=== PATIENT | male | born 1960 | race Two or more races ===

== ENCOUNTER 2017-03-31 10:30 | Inpatient (IN) | payer OTHER ==
[~2017-03-31] VITALS: Ht 167.6 cm; Wt 81.6 kg
[2017-03-31] MEDS ORDERED: METFORMIN HCL500 MG (10:51)
[2017-03-31] MEDS ORDERED: METFORMIN HCL850 MG PO (20:21)
[2017-03-31] MEDS ORDERED: GLUCOTROL10 MG PO (20:22)
[2017-04-14] MEDS ORDERED: NEURONTIN300 MG PO (11:41)
[2017-04-14] MEDS ORDERED: ZOLPIDEM TARTRA10 MG PO (11:41)
[2017-04-14] MEDS ORDERED: GLUCOTROL10 MG PO (11:41)
[2017-04-14] MEDS ORDERED: INTESTINEX680 M1 PO (11:41)
[2017-04-14] MEDS ORDERED: AVAPRO150 MG PO (11:41)
[2017-04-14] MEDS ORDERED: CARdura 2MG TABLET PO (11:41)
[2017-04-14] MEDS ORDERED: AMOX-CLAV 875-1 EACH PO (11:41)
[2017-04-14] MEDS ORDERED: HYDROCHLOROTH12.5 M1 PO (11:41)
[2017-04-14] MEDS ORDERED: METFORMIN HCL850 MG PO (11:41)
== END 2017-04-14 14:48 | disposition home or self-care (01) | DRG 617 ==
LOC: ER 10:30 → SEC-K 20:42 → MEDI 20:42
PROVIDERS: Specialist
PROC: B44FZZZ Ultrasonography of Right Lower Extremity Arteries (ICD-10-PCS; 2017-03-31)
PROC: B54BZZZ Ultrasonography of Right Lower Extremity Veins (ICD-10-PCS; 2017-03-31)
PROC: 0H9MXZX Drainage of Right Foot Skin, External Approach, Diagnostic (ICD-10-PCS; 2017-04-02)
PROC: 0Y6R0Z0 Detachment at Right 2nd Toe, Complete, Open Approach (ICD-10-PCS; principal; 2017-04-07 13:00)
DX: E11.628 Type 2 diabetes mellitus with other skin complications (principal); E11.52 Type 2 diabetes mellitus with diabetic peripheral angiopathy with gangrene; L02.611 Cutaneous abscess of right foot; M86.171 Other acute osteomyelitis, right ankle and foot; L97.518 Non-pressure chronic ulcer of other part of right foot with other specified severity; I70.261 Atherosclerosis of native arteries of extremities with gangrene, right leg; E11.65 Type 2 diabetes mellitus with hyperglycemia; L03.031 Cellulitis of right toe; B95.61 Methicillin susceptible Staphylococcus aureus infection as the cause of diseases classified elsewhere; I10 Essential (primary) hypertension; E11.69 Type 2 diabetes mellitus with other specified complication; E11.621 Type 2 diabetes mellitus with foot ulcer

== ENCOUNTER 2017-07-16 21:30 | Emergency (ER) | payer OTHER ==
[~2017-07-16] VITALS: Ht 167.6 cm; Wt 72.6 kg
[~2017-07-16 21:30] MED LIST: AMOX-CLAV 875-1 EACH PO; AVAPRO150 MG PO; CARdura 2MG TABLET PO; GLUCOTROL10 MG PO; HYDROCHLOROTH12.5 M1 PO; INTESTINEX680 M1 PO; METFORMIN HCL500 MG; METFORMIN HCL850 MG PO; NEURONTIN300 MG PO; ZOLPIDEM TARTRA10 MG PO
== END 2017-07-17 00:35 | disposition home or self-care (01) ==
LOC: ER 21:30
DX: K31.84 Gastroparesis (principal); K29.70 Gastritis, unspecified, without bleeding; R51 Headache

== ENCOUNTER 2019-09-15 11:19 | Emergency (ER) | payer OTHER ==
[~2019-09-15] VITALS: Ht 167.6 cm; Wt 77.1 kg
[2019-09-15] MEDS ORDERED: AMOX1TAB5 PO (12:23)
== END 2019-09-15 12:40 | disposition home or self-care (01) ==
LOC: ER 11:19
DX: L02.511 Cutaneous abscess of right hand (principal)